=== PATIENT | male | born 1965 | race Caucasian/White ===

== ENCOUNTER 2018-09-21 16:53 | Inpatient (IN) | payer OTHER ==
[~2018-09-21] VITALS: Ht 152.4 cm; Wt 149.9 kg
[2018-09-21 17:00] VITALS: BP 190/86
[2018-09-21] MEDS ORDERED: ESCITALOPRAM OX10 MG PO (17:37)
[2018-09-21] MEDS ORDERED: KLOR-CON M1010 MEQ PO (17:37)
[2018-09-21] MEDS ORDERED: LASIX 20 MG TAB20 MG PO (17:38)
[2018-09-21] MEDS ORDERED: NORVASC5 MG PO (17:38)
[2018-09-21] MEDS ORDERED: OMEPRAZOLE40 MG PO (17:39)
[2018-09-21] MEDS ORDERED: LOSARTAN POTAS100 MG PO (17:39)
[2018-09-21] MEDS ORDERED: VITAMIN D2000 UNIT PO (17:40)
[2018-09-21] MEDS ORDERED: VITAMIN B-121000 MC3 PO (17:41)
[2018-09-21 17:43] LABS: HEMATOCRIT 36.1 % (42.0-52.0); HEMOGLOBIN 12.5 gm/dL (14.0-18.0); MCH 33.4 pg (26.0-34.0); MCHC 34.6 g/dL (28.0-37.0); MCV 96.5 fL (80.0-100.0); PLATELET COUNT 199 thou/uL (150-400); RBC 3.74 mil/uL (4.50-6.00); WBC 6.9 thou/uL (4.0-11.0)
[2018-09-21 17:52] LABS: ANION GAP 10 mmol/L (7-16); BUN 32 mg/dL (7-18); CALCIUM 8.9 mg/dL (8.5-10.1); CHLORIDE 102 mmol/L (98-107); CO2 26 mmol/L (21-32); CREATININE 2.1 mg/dL (0.7-1.3); GLUCOSE 138 mg/dL (74-106); POTASSIUM 4.4 mmol/L (3.5-5.1); SODIUM 138 mmol/L (136-145)
[2018-09-21 18:00] LABS: ALBUMIN 3.4 g/dL (3.4-5.0); SGOT 53 U/L (15-37); SGPT 97 U/L (30-65); TOTAL BILIRUBIN 0.4 mg/dL (<0.1-1.0); TOTAL PROTEIN 7.8 g/dL (6.4-8.2); TROPONIN-I <0.06 ng/mL (<0.06)
[2018-09-21 18:25] LABS: ABSOLUTE NEUTROPHILS 4.7 thou/uL (1.4-8.2)
[2018-09-21 18:26] LABS: ANISOCYTOSIS 1+
[2018-09-21 20:11] VITALS: BP 165/79
[2018-09-21 20:40] VITALS: BP 171/72
[2018-09-22 04:33] VITALS: BP 182/80
[2018-09-22 05:41] LABS: HEMATOCRIT 34.5 % (42.0-52.0); HEMOGLOBIN 11.6 gm/dL (14.0-18.0); MCH 32.7 pg (26.0-34.0); MCHC 33.8 g/dL (28.0-37.0); MCV 96.9 fL (80.0-100.0); RBC 3.56 mil/uL (4.50-6.00); WBC 6.7 thou/uL (4.0-11.0)
[2018-09-22 06:02] LABS: CALCIUM 8.9 mg/dL (8.5-10.1); CREATININE 1.9 mg/dL (0.7-1.3); POTASSIUM 4.3 mmol/L (3.5-5.1)
[2018-09-22 08:04] VITALS: BP 179/69
--- NOTE | 2018-09-22 08:17 | EKG ---
[address] [place] [address] ELECTROCARDIOGRAM REPORT Name: DARYN ORNELAS Room #: 456-P ADM IN M.R.#: [id number] Admission: 09/21/18 Attend Phys: Gopi Velasco MD Discharge: Date of : 63 Report #: [id number] THIS REPORT FOR: //name// [facility] ED Test Date: 2018-09-21 Test Time: 18:25:50 Pat Name: DARYN ORNELAS Department: Room: 456 Gender: M Seasonal Package Handler: LUIZA : 1965 Requested By: Dora Hart Order Number: [id number] MD: Owen Scott Measurements Intervals [place] Rate: 67 P: 41 AR: 194 QRS: 45 QRSD: 91 T: 43 QT: 415 QTc: 438 Interpretive Statements Sinus rhythm Nonspecific ST and T wave abnormality No previous ECG available for comparison Electronically Signed On 09-22-2018 8:17:36 ELECTRICIAN HELPER by Owen Scott [email or web address] <ELECTRONICALLY SIGNED> By: Owen Scott MD, [facility] 09/22/18 0817 1825 1825 Owen Scott MD, FACC /EPI
--- NOTE | 2018-09-22 08:18 | NUR ---
PROGRESS PT DENIES PAIN, VSS, TELE NTACT PT HAS EDEMA 2 TO 3 PLUS IN ALL EXTREMETIES, REPORTS PROGRESSIVE SOB WITH EXERTION, 20 MG LASIX GIVEN IN ED PT VOIDING LARGE AMOUNTS CARDIOLOGY TO SEE.
--- NOTE | 2018-09-22 09:35 | 2DMMODE ---
[facility] [address] [place] [address] 2 D/M-MODE ECHOCARDIOGRAM Name: DARYN ORNELAS Room #: 456-P [facility] IN ..#: [id number] Admission: 09/21/18 Attend Phys: Gopi Velasco MD Discharge: Date of : 63 Date of Service: 09/22/18 0935 Report #: [id number] THIS REPORT FOR: //name// APPROVED REPORT Study performed: 09/22/2018 08:32:26 EXAM: Comprehensive 2D, Doppler, and color-flow Echocardiogram Patient Location: Bedside Room #: 456 Status: routine BSA: 2.65 HR: 72 bpm BP: 182/80 mmHg Rhythm: NSR Other Information Study Quality: Good Indications Short of breath, elevated BNP, fluid retention. HX: HTN, morbid obesity. 2D Dimensions RVDd: 38.11 mm IVSd: 10.00 (7-11mm) LVOT Diam: 23.49 (18-24mm) LVDd: 57.00 mm PWd: 11.00 (7-11mm) Ascending Ao: 36.00 (22-36mm) LVDs: 36.54 (25-40mm) Aortic Root: 38.00 mm Volumes Left Atrial Volume (Systole) Single Plane 4CH: 55.51 mL Single Plane 2CH: 76.53 mL LA ESV Index: 27.00 mL/m2 Aortic Valve AoV Peak Christopher.: 1.58 m/s AO Peak Gr.: 9.94 mmHg LVOT Max P.50 mmHg LVOT Max V: 1.28 m/s MARY Vmax: 3.51 cm2 Mitral Valve E/A Ratio: 1.9 MV Decel. Time: 209.71 ms [facility] [address] [address] [place] [address] 2 D/M-MODE ECHOCARDIOGRAM Name: CECIDARYN Deon Room #: 456-P [facility] IN [facility]#: [id number] Admission: 09/21/18 Attend Phys: Gopi Velasco MD Discharge: Date of : 63 Date of Service: 09/22/18 0935 Report #: [id number] MV E Max Christopher.: 1.33 m/s MV A Christopher.: 0.70 m/s MV PHT: 60.82 ms IVRT: 55.36 ms Pulmonary Valve PV Peak Christopher.: 1.18 m/s PV Peak Gr.: 5.52 mmHg Pulmonary Vein P Vein S: 0.69 m/s P Vein A: 0.27 m/s P Vein D: 0.89 m/s P Vein A Dur.: 124.6 msec P Vein S/D Ratio: 0.78 Tricuspid Valve RAP Estimate: 5.00 mmHg Left Ventricle The left ventricle is normal size. There is normal LV segmental wall motion. There is normal left ventricular wall thickness. Left ventricular systolic function is normal. LVEF is 60-65%. Right Ventricle The right ventricle is normal size. The right ventricular systolic function is normal. Atria The left atrium size is normal. The right atrium size is normal. Aortic Valve The aortic valve is normal in structure. Trace aortic regurgitation. There is no aortic valvular stenosis. Mitral Valve The mitral valve is normal in structure. Trace mitral regurgitation. No evidence of mitral valve stenosis. Tricuspid Valve The tricuspid valve is normal in structure. Trace tricuspid regurgitation. Unable to assess PA pressure. Pulmonic Valve Pulmonic valve is not well visualized. Great Vessels Aortic root is borderline dilated. The ascending aorta is normal in [facility] [address] [address] 2 D/M-MODE ECHOCARDIOGRAM Name: DARYN ORNELAS Room #: 456-P [facility] IN [facility].#: [id number] Admission: 09/21/18 Attend Phys: Gopi Velasco MD Discharge: Date of : 63 Date of Service: 09/22/18 0935 Report #: [id number] size. IVC is normal in size and collapses >50% with inspiration. Pericardium There is no pericardial effusion. <Conclusion> The left ventricle is normal size. There is normal left ventricular wall thickness. Left ventricular systolic function is normal. The right ventricle is normal size. The left atrium size is normal. The right atrium size is normal. Trace aortic regurgitation. Trace mitral regurgitation. Trace tricuspid regurgitation. <ELECTRONICALLY SIGNED> By: Desmond Reyna MD 09/22/1835 4 4 Desmond Reyna MD /INF
--- NOTE | 2018-09-22 14:20 | NUR ---
ASSUMED CARE AT 0700. AXOX4. ADMIT WITH DYSPNEA AND FLUID RETENTION. LASIX GIVEN. VOIDING LIGHT YELLOW URINE. ON IV CLINDAMYCIN. ECHO DONE. NEW CARDIAC MEDS STARTED. RENAL ULTRASOUND COMPLETED. NO C/O CHEST PAIN SOB NOTED AT THIS TIME. PT DID REPORTED THAT HE DOES GET SOB ON EXCERTION. NO S/S ACUTE DISTRESS NOTED OR REPORTED AT THIS TIME. WILL CONT TO MONITOR FOR ANY CHANGES OR PROGRESS.
[2018-09-22 15:08] VITALS: BP 175/74
--- NOTE | 2018-09-22 15:55 | NUR ---
PT ADMITTED RELATED TO SHORTNESS OF BREATHE WEIGHT GAIN. CM REVIEWED CHART AND SPOKE WITH CARE TEAM. CM MET WITH PT AT BEDSIDE THIS DAY. PT IS A&O X4. CM ROLE INTRODUCED. PT INDICATED HE LIVES IN A HOUSE WITH HIS SO. 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 PT INDICATED NO DME OR HH HX. PT INDICATED HE PLANS TO RETURN HOME ONCE MEDICALLY STABLE. CM TO FOLLOW INDICATED WITH DC PLANNING.
[2018-09-22 19:24] VITALS: BP 159/75
--- NOTE | 2018-09-22 23:56 | NUR ---
Assumed care of the patient at 1914 pm. Alert et oriented x 4. Makes needs known. Right AC SL flushed without difficulty. The patient received his dose of ABT at 2300 pm. The patient was up and about his room earlier in the shift. Right leg cellulitis, is not very red at this time. No drainage noted from cellulitis. Denies pain at this time.
[2018-09-23 03:45] VITALS: BP 173/82
[2018-09-23 05:19] LABS: HEMOGLOBIN 11.6 gm/dL (14.0-18.0); MCH 32.7 pg (26.0-34.0); MCV 96.1 fL (80.0-100.0); PLATELET COUNT 199 thou/uL (150-400); RBC 3.53 mil/uL (4.50-6.00); RDW 12.7 % (10.5-14.5); WBC 7.3 thou/uL (4.0-11.0)
[2018-09-23 05:41] LABS: CALCIUM 8.6 mg/dL (8.5-10.1); CREATININE 2.2 mg/dL (0.7-1.3); POTASSIUM 4.4 mmol/L (3.5-5.1)
[2018-09-23 06:25] LABS: ABSOLUTE NEUTROPHILS 4.5 thou/uL (1.4-8.2)
[2018-09-23 06:26] LABS: PLATELET ESTIMATE NORMAL
[2018-09-23] MEDS ORDERED: BYSTOLIC 5 MG5 M1 PO (14:50)
[2018-09-23] MEDS ORDERED: DEMADEX20 MG PO (14:50)
[2018-09-23 15:26] VITALS: BP 173/82
== END 2018-09-23 15:51 | disposition home or self-care (01) | DRG 603 ==
LOC: ER 16:53 → 4W 19:33 → EROBS 19:33 → 4W 20:28
PROVIDERS: Emergency Medicine; Nurse Practitioner Acute Care; ADMIT Hospitalist
DX: L03.115 Cellulitis of right lower limb (principal); N17.9 Acute kidney failure, unspecified; J90 Pleural effusion, not elsewhere classified; Z68.44 Body mass index [BMI] 60.0-69.9, adult; I50.30 Unspecified diastolic (congestive) heart failure; E87.70 Fluid overload, unspecified; F12.90 Cannabis use, unspecified, uncomplicated; K21.9 Gastro-esophageal reflux disease without esophagitis; F41.9 Anxiety disorder, unspecified; I11.0 Hypertensive heart disease with heart failure; F32.9 Major depressive disorder, single episode, unspecified; E66.9 Obesity, unspecified; Z90.49 Acquired absence of other specified parts of digestive tract; Z88.6 Allergy status to analgesic agent; Z88.8 Allergy status to other drugs, medicaments and biological substances; Z80.0 Family history of malignant neoplasm of digestive organs; Z80.8 Family history of malignant neoplasm of other organs or systems; Z80.1 Family history of malignant neoplasm of trachea, bronchus and lung; Z87.891 Personal history of nicotine dependence
CPT/HCPCS: 10045

== ENCOUNTER → 2019-01-16 | Outpatient (CLI) | payer OTHER ==
[~2019-01-16] MED LIST: BYSTOLIC 5 MG5 M1 PO; DEMADEX20 MG PO; ESCITALOPRAM OX10 MG PO; KLOR-CON M1010 MEQ PO; LASIX 20 MG TAB20 MG PO; LOSARTAN POTAS100 MG PO; NORVASC5 MG PO; OMEPRAZOLE40 MG PO; VITAMIN B-121000 MC3 PO; VITAMIN D2000 UNIT PO
== END ==
LOC: CAT 09:21
DX: Z13.6 Encounter for screening for cardiovascular disorders (principal); I25.10 Atherosclerotic heart disease of native coronary artery without angina pectoris; E78.00 Pure hypercholesterolemia, unspecified